=== PATIENT | female | born 1945 | race Native Hawaiian/Other Pacific Islander ===

== ENCOUNTER 2016-10-22 15:42 | Emergency (ER) | payer OTHER ==
[~2016-10-22] VITALS: Ht 152.4 cm; Wt 83.5 kg
[2016-10-22 16:24] LABS: POTASSIUM 3.6 mmol/L (3.6-5.2); SODIUM 138 mmol/L (136-145)
[2016-10-22 16:28] LABS: PLATELET COUNT 197 K/uL (152-353)
[2016-10-22 16:45] LABS: PARTIAL THROMBOPLASTIN TIME 23.1 SECONDS (24.5-33.6)
[2016-10-22 17:45] VITALS: BP 138/88; TEMP 98
== END 2016-10-22 17:46 | disposition home or self-care (01) ==
LOC: ED 15:42
DX: K21.9 Gastro-esophageal reflux disease without esophagitis (principal)
CPT/HCPCS: 36415; 80053; 82550; 84484; 85027; 85610; 85730; 86318; 93005; 99283

== ENCOUNTER 2017-09-02 12:20 | Emergency (ER) | payer OTHER ==
[~2017-09-02] VITALS: Ht 152.4 cm; Wt 81.6 kg
[2017-09-02 12:31] VITALS: TEMP 98.6
[2017-09-02 14:19] LABS: PLATELET COUNT 186 K/uL (152-353)
[2017-09-02 14:30] LABS: POTASSIUM 3.7 mmol/L (3.6-5.2); SODIUM 141 mmol/L (136-145)
[2017-09-02 16:38] VITALS: BP 129/78
== END 2017-09-02 16:40 | disposition home or self-care (01) ==
LOC: ED 12:20
PROVIDERS: Emergency Medicine
DX: J40 Bronchitis, not specified as acute or chronic (principal)
CPT/HCPCS: 36415; 80053; 85027; 87081; 87804; 87880; 96372; 99283; J0696

== ENCOUNTER 2018-12-16 10:21 | Outpatient (CLI) | payer OTHER | END 2018-12-16 20:31 | disposition home or self-care (01) | LOC: LAB 10:21 | DX: K64.0 First degree hemorrhoids (principal) | CPT/HCPCS: 82272 ==

== ENCOUNTER 2019-06-29 18:07 | Outpatient (CLI) | payer OTHER ==
[2019-06-29 18:20] LABS: PLATELET COUNT 186 K/uL (152-353)
[2019-06-29 18:43] LABS: POTASSIUM 4.3 mmol/L (3.6-5.2)
== END 2019-06-29 19:56 | disposition home or self-care (01) ==
LOC: LAB 18:07
PROVIDERS: Internal Medicine
DX: E03.8 Other specified hypothyroidism (principal); R25.1 Tremor, unspecified; K21.9 Gastro-esophageal reflux disease without esophagitis; E78.00 Pure hypercholesterolemia, unspecified
CPT/HCPCS: 80053; 80061; 82306; 84443; 85027

== ENCOUNTER 2019-07-05 16:51 | Emergency (ER) | payer OTHER ==
[~2019-07-05] VITALS: Ht 152.4 cm; Wt 82.6 kg
[2019-07-05 20:24] VITALS: BP 146/72; TEMP 98.5
== END 2019-07-05 20:24 | disposition home or self-care (01) ==
LOC: ED 16:51
DX: S00.83XA Contusion of other part of head, initial encounter (principal); S10.83XA Contusion of other specified part of neck, initial encounter; W01.0XXA Fall on same level from slipping, tripping and stumbling without subsequent striking against object, initial encounter; Y92.89 Other specified places as the place of occurrence of the external cause
CPT/HCPCS: 96372; 99283; J2060

== ENCOUNTER 2020-01-19 23:03 | Emergency (ER) | payer OTHER ==
[~2020-01-19] VITALS: Ht 152.4 cm; Wt 85.7 kg
[2020-01-20 00:18] LABS: POTASSIUM 3.3 mmol/L (3.6-5.2); SODIUM 134 mmol/L (136-145)
[2020-01-20 00:22] LABS: PLATELET COUNT 185 K/uL (152-353)
[2020-01-20 00:30] LABS: PARTIAL THROMBOPLASTIN TIME 24.1 SECONDS (24.5-33.6)
[2020-01-20 02:27] VITALS: BP 164/81; TEMP 98
== END 2020-01-20 02:28 | disposition home or self-care (01) ==
LOC: ED 23:03
PROVIDERS: Hospitalist
DX: R07.89 Other chest pain (principal); K21.9 Gastro-esophageal reflux disease without esophagitis; R06.02 Shortness of breath
CPT/HCPCS: 80053; 82550; 83880; 84484; 85027; 85610; 85730; 93005; 96374; 99284; J3490

== ENCOUNTER 2020-07-03 08:28 | Emergency (ER) | payer OTHER ==
[~2020-07-03] VITALS: Ht 152.4 cm; Wt 70.3 kg
[2020-07-03 08:38] VITALS: TEMP 98.5
[2020-07-03 09:12] LABS: POTASSIUM 3.6 mmol/L (3.6-5.2)
[2020-07-03 09:32] LABS: PLATELET COUNT 218 K/uL (152-353)
[2020-07-03 14:09] VITALS: BP 123/80
== END 2020-07-03 14:23 | disposition home or self-care (01) ==
LOC: ED 08:28
PROVIDERS: Family Medicine
DX: E86.0 Dehydration (principal); R00.0 Tachycardia, unspecified; R11.2 Nausea with vomiting, unspecified; G89.29 Other chronic pain; K21.9 Gastro-esophageal reflux disease without esophagitis
CPT/HCPCS: 36415; 80053; 81000; 84484; 85027; 93005; 96360; 96365; 96375; 96376; 99284; J2060; J2175; J2405; J2765; J3490

== ENCOUNTER 2020-07-05 11:34 | Inpatient (IN) | payer OTHER ==
[~2020-07-05] VITALS: Ht 152.4 cm; Wt 76.0 kg
[2020-07-05] VITALS (10 sets, daily range): BP systolic 109–144; BP diastolic 60–96; TEMP 97.5–98.2; Ht 152.4 cm; Wt 76.0 kg
[2020-07-05 12:31] LABS: PLATELET COUNT 186 K/uL (152-353)
[2020-07-05 12:39] LABS: POTASSIUM 2.7 mmol/L (3.6-5.2)
[2020-07-05] MEDS ORDERED: OXYCODONE HCL E10 MG PO (13:28)
[2020-07-05] MEDS ORDERED: ONDA4TAB3 PO (13:28)
[2020-07-05] MEDS ORDERED: ESOMEPRAZOLE MA40 M1 PO (17:45)
[2020-07-05] MEDS ORDERED: MECLIZINE25 MG PO (17:46)
[2020-07-05] MEDS ORDERED: DEXILANT60 M1 PO (17:48)
[2020-07-05] MEDS ORDERED: TOPAMAX50 MG PO (17:49)
[2020-07-05] MEDS ORDERED: EUTHYROX75 MCG PO (17:49)
[2020-07-06 00:05] VITALS: BP 158/88; TEMP 98.8
[2020-07-06 04:00] VITALS: BP 153/79; TEMP 98.3
[2020-07-06 05:03] LABS: PLATELET COUNT 148 K/uL (152-353)
[2020-07-06 05:15] LABS: POTASSIUM 3.1 mmol/L (3.6-5.2)
[2020-07-06 08:00] VITALS: BP 126/72; TEMP 98.5
[2020-07-06 12:00] VITALS: BP 146/79; TEMP 98.3
[2020-07-06 16:00] VITALS: BP 158/77; TEMP 98.7
[2020-07-06 20:00] VITALS: BP 128/69; TEMP 98.3
[2020-07-07] VITALS (7 sets, daily range): BP systolic 114–158; BP diastolic 54–72; TEMP 97.6–98.6
[2020-07-07 08:41] LABS: POTASSIUM 3.1 mmol/L (3.6-5.2)
[2020-07-08] VITALS: BP 146/77; TEMP 99.3
[2020-07-08 04:00] VITALS: BP 155/81; TEMP 98.8
[2020-07-08 06:08] LABS: PLATELET COUNT 142 K/uL (152-353)
[2020-07-08 08:00] VITALS: BP 136/81; TEMP 98.5
[2020-07-08 12:00] VITALS: BP 134/89; TEMP 99.7
[2020-07-08 16:12] VITALS: BP 150/96; TEMP 98.6
[2020-07-08 19:47] VITALS: BP 158/79; TEMP 99.5
[2020-07-09] VITALS: BP 153/80; TEMP 98.4
[2020-07-09 04:00] VITALS: BP 126/81; TEMP 99.1
[2020-07-09 05:29] LABS: POTASSIUM 3.9 mmol/L (3.6-5.2)
[2020-07-09 05:37] LABS: PLATELET COUNT 152 K/uL (152-353)
[2020-07-09 08:00] VITALS: BP 146/79; TEMP 97.9
[2020-07-09 12:00] VITALS: BP 138/89; TEMP 98.8
[2020-07-09 16:00] VITALS: BP 144/63; TEMP 98.7
[2020-07-09 20:00] VITALS: BP 138/76; TEMP 97.9
[2020-07-10] VITALS: BP 167/61; TEMP 98.3
[2020-07-10 04:00] VITALS: BP 148/79; TEMP 97.6
[2020-07-10 05:42] LABS: PLATELET COUNT 146 K/uL (152-353)
[2020-07-10 08:00] VITALS: BP 139/79; TEMP 98.6
[2020-07-10] MEDS ORDERED: FENT25DI TOP (10:55)
[2020-07-10] MEDS ORDERED: MEGESTROL AC40 MG/ML PO (10:55)
[2020-07-10] MEDS ORDERED: MORP20SO3 BU (10:57)
== END 2020-07-10 11:48 | disposition home or self-care (01) | DRG 437 ==
LOC: ED 11:34 → MED/SURG 13:14
PROVIDERS: Internal Medicine; Internal Medicine Endocrinology, Diabetes & Metabolism; ADMIT Emergency Medicine Emergency Medical Services
DX: C25.7 Malignant neoplasm of other parts of pancreas (principal); E87.6 Hypokalemia; E66.8 Other obesity; R11.2 Nausea with vomiting, unspecified; R10.9 Unspecified abdominal pain; R63.0 Anorexia; Z68.32 Body mass index [BMI] 32.0-32.9, adult
CPT/HCPCS: 36415; 80048; 80053; 83690; 83735; 85027; 96360; 96361; 96365; 96366; 96367; 96372; 96375; 99284; J1650; J2060; J2270; J2405; J3480; J3490